=== PATIENT | female | born 1990 | race Caucasian/White ===

== ENCOUNTER 2017-09-12 11:19 | Observation (INO) | payer OTHER ==
[~2017-09-12] VITALS: Ht 167.6 cm; Wt 76.7 kg
[2017-09-12 12:08] VITALS: BP 116/72
[2017-09-12 12:31] LABS: BASOPHILS % (AUTO) 0.4 % (0.0-2.0); EOSINOPHILS % (AUTO) 1.6 % (1.0-6.0); HEMATOCRIT 36.8 % (36-46); HEMOGLOBIN 12.8 g/dL (12.0-16.0); LYMPHOCYTES # (AUTO) 1.6 K/uL (1.0-4.8); LYMPHOCYTES % (AUTO) 16.6 % (22.0-44.0); MEAN CORPUSCULAR HEMOGLOBIN 29.6 pg (26.0-34.0); MEAN CORPUSCULAR HGB CONC 34.6 G/dL (31.0-37.0); MEAN CORPUSCULAR VOLUME 86 fL (80-100); MONOCYTES # (AUTO) 0.5 K/uL (0.1-1.0); MONOCYTES % (AUTO) 5.1 % (2.0-9.0); NEUTROPHILS # (AUTO) 7.1 K/uL (1.8-7.7); NEUTROPHILS % (AUTO) 76.3 % (40.0-70.0); PLATELET COUNT (AUTO) 165 K/uL (150-450); RED CELL DISTRIBUTION WIDTH 13.1 % (11.5-14.5)
[2017-09-12 12:40] LABS: ANION GAP 6 mmol/L (8-16); CALCIUM, TOTAL 8.9 mg/dL (8.8-10.5); CARBON DIOXIDE 26 mmol/L (22-29); CHLORIDE 103 mmol/L (98-107); CREATININE 0.54 mg/dL (0.60-1.30); GLOMERULAR FILTR. RATE CALC > 60 mL/min (>60); GLUCOSE,RANDOM 76 mg/dL (70-110); POTASSIUM 4.4 mmol/L (3.5-5.1); SODIUM SERUM 135 mmol/L (136-145); UREA NITROGEN, BLOOD 10 mg/dL (7-18)
[2017-09-12 12:45] LABS: ALANINE AMINOTRANSFERASE 29 U/L (12-78); ALBUMIN 2.4 g/dL (3.4-5.0); ALKALINE PHOSPHATASE 88 U/L (46-116); ASPARTATE AMINOTRANSFERASE 19 U/L (15-37); BILIRUBIN,TOTAL 0.4 mg/dL (0.1-1.0); TOTAL PROTEIN, SERUM 6.3 g/dL (6.4-8.2)
[2017-09-12 12:55] LABS: URIC ACID 3.6 mg/dL (2.6-7.2)
== END 2017-09-12 13:25 | disposition home or self-care (01) ==
LOC: 4S 11:19
PROVIDERS: ADMIT Obstetrics & Gynecology; ATTEND Obstetrics & Gynecology
DX: O13.3 Gestational [pregnancy-induced] hypertension without significant proteinuria, third trimester (principal); Z3A.37 37 weeks gestation of pregnancy
CPT/HCPCS: 36415; 59025; 80053; 84550; 85025; G0378

== ENCOUNTER 2017-10-05 14:10 | Inpatient (IN) | payer OTHER ==
[~2017-10-05] VITALS: Ht 168 cm; Wt 80.7 kg
[2017-10-05] MEDS ORDERED: RINGERS SOLUTION,LACTATED 1,000 ML IV PRN (14:21)
[2017-10-05] MEDS ORDERED: OXYTOCIN 30 UNITS/LACT RINGERS 500 ML IV ONE (14:21)
[2017-10-05] MEDS ORDERED: METOCLOPRAMIDE HCL 5 MG/ML 2 ML VIAL IVP PRN (14:30)
[2017-10-05] MEDS ORDERED: CITRIC ACID/SODIUM CITRATE 30 ML SOLUTION UDCUP PO PRN (14:30)
[2017-10-05 14:45] LABS: BASOPHILS % (AUTO) 0.7 % (0.0-2.0); HEMATOCRIT 40.3 % (36-46); HEMOGLOBIN 14.2 g/dL (12.0-16.0); LYMPHOCYTES # (AUTO) 1.6 K/uL (1.0-4.8); LYMPHOCYTES % (AUTO) 15.1 % (22.0-44.0); MEAN CORPUSCULAR HEMOGLOBIN 30.3 pg (26.0-34.0); MEAN CORPUSCULAR HGB CONC 35.3 G/dL (31.0-37.0); MEAN CORPUSCULAR VOLUME 86 fL (80-100); MONOCYTES # (AUTO) 0.4 K/uL (0.1-1.0); MONOCYTES % (AUTO) 3.7 % (2.0-9.0); NEUTROPHILS # (AUTO) 8.5 K/uL (1.8-7.7); NEUTROPHILS % (AUTO) 79.5 % (40.0-70.0); PLATELET COUNT (AUTO)-OB 172 K/uL (150-450); RED CELL DISTRIBUTION WIDTH 13.9 % (11.5-14.5)
[2017-10-05] MEDS ORDERED: METHY250 PO (15:31)
[2017-10-05] MEDS ORDERED: PREN1TAB80 PO (15:31)
[2017-10-05] MEDS ORDERED: AMPICILLIN SODIUM 1 GM/NS 50 ML IV SCH (15:45)
[2017-10-05] MEDS ORDERED: AMPICILLIN SODIUM 2 GM/NS 100 ML IV ONE (15:45)
[2017-10-05] MEDS: RINGERS SOLUTION,LACTATED 1,000 ML IV SCH ×2 (15:57→20:01)
[2017-10-05 17:17] VITALS: BP 114/78
[2017-10-05] MEDS: MISOPROSTOL 25 MCG TABLET VG SCH ×2 (17:21→21:28)
[2017-10-06] MEDS: MISOPROSTOL 25 MCG TABLET VG SCH ×4 (01:43→14:05)
[2017-10-06] MEDS: RINGERS SOLUTION,LACTATED 1,000 ML IV SCH ×3 (01:44→20:45)
[2017-10-06] MEDS: OXYGEN THERAPY IH SCH (08:00)
[2017-10-06] MEDS ORDERED: AMPICILLIN SODIUM 2 GM/NS 100 ML IV ONE ×2 (11:15)
[2017-10-06] MEDS ORDERED: AMPICILLIN SODIUM 1 GM/NS 50 ML IV SCH (15:15)
[2017-10-06] MEDS: AMPICILLIN SODIUM 1 GM/NS 50 ML IV SCH ×2 (17:23→20:45)
[2017-10-06] MEDS ORDERED: DINOPROSTONE 10 MG VAGINAL SUPPOSITORY VG ONE (20:30)
[2017-10-06] MEDS: FentaNYL CITRATE-PF 100 MCG/2 ML VIAL IVP PRN ×2 (20:44→22:48)
[2017-10-07] MEDS ORDERED: DINOPROSTONE 10 MG VAGINAL SUPPOSITORY VG ONE (00:45)
[2017-10-07] MEDS ORDERED: LIDOCAINE HCL/PF 2% 5 ML VIAL ONE (00:55)
[2017-10-07] MEDS ORDERED: ROPIVACAINE HCL/PF 0.2% 100 ML ED ONE ×2 (00:55→09:28)
[2017-10-07] MEDS: RINGERS SOLUTION,LACTATED 1,000 ML IV SCH ×3 (01:02→14:50)
[2017-10-07] MEDS: AMPICILLIN SODIUM 1 GM/NS 50 ML IV SCH ×3 (01:03→10:15)
[2017-10-07] MEDS ORDERED: FentaNYL/BUPIV 0.125%/NS/PF 200 ML ED PRN (01:14)
[2017-10-07] MEDS ORDERED: NALBUPHINE HCL 10 MG/ML VIAL IVP PRN (01:15)
[2017-10-07] MEDS ORDERED: DiphenhydrAMINE HCL 50 MG/ML VIAL IVP PRN (01:15)
[2017-10-07] MEDS ORDERED: ONDANSETRON HCL 4 MG/2 ML VIAL IVP PRN (01:15)
[2017-10-07] MEDS ORDERED: LIDOCAINE HCL 2%/EPI 1:200,000/PF 20 ML VIAL ONE (09:28)
[2017-10-07] MEDS ORDERED: OXYTOCIN 30 UNITS/LACT RINGERS 500 ML IV PRN (12:32)
[2017-10-07] MEDS ORDERED: -PHARMACY NOTE- MISC ONE (12:45)
[2017-10-07] MEDS: OXYGEN THERAPY IH SCH (12:51)
[2017-10-07] MEDS ORDERED: OXYTOCIN 20 UNITS/LACT RINGERS 1,000 ML IV ONE (18:10)
[2017-10-07] MEDS ORDERED: OXYTOCIN 20 UNITS/LACT RINGERS 1,000 ML IV SCH (18:29)
[2017-10-07] MEDS ORDERED: LANOLIN 7 GM OINTMENT TP PRN (18:30)
[2017-10-07] MEDS ORDERED: GLYCERIN/WITCH HAZEL LEAF 40 PADS JAR TP PRN (18:30)
[2017-10-07] MEDS ORDERED: MAGNESIUM HYDROXIDE SUSPENSION 30 ML UDCUP PO PRN (18:30)
[2017-10-07] MEDS ORDERED: SENNA/DOCUSATE SODIUM 187-50 MG TABLET PO PRN (18:30)
[2017-10-07] MEDS ORDERED: MEASLES/MUMPS/RUBELLA VACCINE, LIVE 0.5 ML/VIAL SQ ONE (18:30)
[2017-10-07] MEDS ORDERED: ACETAMINOPHEN/CODEINE 300-30 MG TABLET PO PRN (18:30)
[2017-10-07] MEDS ORDERED: BENZOCAINE 20%/MENTHOL 56 GM SPRAY CANISTER TP PRN (18:30)
[2017-10-07] MEDS ORDERED: IBUPROFEN 600 MG TABLET PO PRN (18:30)
[2017-10-08 06:09] LABS: BASOPHILS % (AUTO) 0.3 % (0.0-2.0); EOSINOPHILS % (AUTO) 1.2 % (1.0-6.0); HEMATOCRIT 35.6 % (36-46); HEMOGLOBIN 12.5 g/dL (12.0-16.0); MEAN CORPUSCULAR HEMOGLOBIN 30.3 pg (26.0-34.0); MEAN CORPUSCULAR HGB CONC 34.9 G/dL (31.0-37.0); MEAN CORPUSCULAR VOLUME 87 fL (80-100); MONOCYTES # (AUTO) 0.9 K/uL (0.1-1.0); MONOCYTES % (AUTO) 5.6 % (2.0-9.0); NEUTROPHILS # (AUTO) 13.2 K/uL (1.8-7.7); NEUTROPHILS % (AUTO) 80.9 % (40.0-70.0); PLATELET COUNT (AUTO)-OB 151 K/uL (150-450); RED BLOOD CELL COUNT(AUTO) 4.11 MIL/uL (4.00-5.20); RED CELL DISTRIBUTION WIDTH 13.7 % (11.5-14.5)
== END 2017-10-08 19:15 | disposition home or self-care (01) | DRG 775 ==
LOC: OBSVTOIN 14:10 → 4S 14:10
PROVIDERS: ADMIT Obstetrics & Gynecology; ATTEND Obstetrics & Gynecology
PROC: 10E0XZZ Delivery of Products of Conception, External Approach (ICD-10-PCS; principal; 2017-10-07)
PROC: 0KQM0ZZ Repair Perineum Muscle, Open Approach (ICD-10-PCS; 2017-10-07)
PROC: 0W8NXZZ Division of Female Perineum, External Approach (ICD-10-PCS; 2017-10-07)
PROC: 3E0R3BZ Introduction of Anesthetic Agent into Spinal Canal, Percutaneous Approach (ICD-10-PCS; 2017-10-07)
PROC: 00HU33Z Insertion of Infusion Device into Spinal Canal, Percutaneous Approach (ICD-10-PCS; 2017-10-07)
DX: O77.0 Labor and delivery complicated by meconium in amniotic fluid (principal); O69.81X0 Labor and delivery complicated by cord around neck, without compression, not applicable or unspecified; O70.1 Second degree perineal laceration during delivery; Z3A.40 40 weeks gestation of pregnancy; Z37.0 Single live birth
CPT/HCPCS: 86850; 86900; 86901; J0290; J2590; J2795; J3010; J3490; J7120

== ENCOUNTER 2020-01-12 23:54 | Inpatient (IN) | payer OTHER ==
[~2020-01-12] VITALS: Ht 168 cm; Wt 72.6 kg
[~2020-01-12 23:54] MED LIST: PREN1TAB80 PO
[2020-01-13] MEDS ORDERED: RINGERS SOLUTION,LACTATED 1,000 ML IV PRN (00:27)
[2020-01-13] MEDS ORDERED: OXYTOCIN 30 UNITS/LACT RINGERS 500 ML IV ONE ×2 (00:27→02:36)
[2020-01-13] MEDS ORDERED: RINGERS SOLUTION,LACTATED 1,000 ML IV SCH (00:27)
[2020-01-13] MEDS ORDERED: CITRIC ACID/SODIUM CITRATE 30 ML SOLUTION UDCUP PO PRN (00:30)
[2020-01-13] MEDS ORDERED: FentaNYL CITRATE-PF 100 MCG/2 ML VIAL IVP PRN (00:30)
[2020-01-13] MEDS ORDERED: METOCLOPRAMIDE HCL 5 MG/ML 2 ML VIAL IVP PRN (00:30)
[2020-01-13] MEDS ORDERED: BUPIVACAINE HCL/PF 0.25% 10 ML VIAL ONE (00:56)
[2020-01-13] MEDS ORDERED: ROPIVACAINE HCL/PF 0.2% 100 ML ED ONE (00:56)
[2020-01-13] MEDS ORDERED: ROPIVACAINE HCL/PF 0.2% 100 ML ED PRN (01:15)
[2020-01-13] MEDS ORDERED: ONDANSETRON HCL 4 MG/2 ML VIAL IVP PRN (01:15)
[2020-01-13] MEDS ORDERED: DiphenhydrAMINE HCL 50 MG/ML VIAL IVP PRN (01:15)
[2020-01-13] MEDS ORDERED: NALBUPHINE HCL 10 MG/ML VIAL IVP PRN (01:15)
[2020-01-13 01:32] LABS: BASOPHILS % (AUTO) 0.6 % (0.0-2.0); EOSINOPHILS % (AUTO) 0.7 % (1.0-6.0); LYMPHOCYTES # (AUTO) 2.4 K/uL (1.0-4.8); LYMPHOCYTES % (AUTO) 19.5 % (22.0-44.0); MEAN CORPUSCULAR HEMOGLOBIN 30.3 pg (26.0-34.0); MEAN CORPUSCULAR HGB CONC 35.1 G/dL (31.0-37.0); MEAN CORPUSCULAR VOLUME 86 fL (80-100); MONOCYTES # (AUTO) 0.6 K/uL (0.1-1.0); MONOCYTES % (AUTO) 4.8 % (2.0-9.0); NEUTROPHILS % (AUTO) 74.4 % (40.0-70.0); PLATELET COUNT (AUTO)-OB 135 K/uL (150-450); RED BLOOD CELL COUNT(AUTO) 4.63 MIL/uL (4.00-5.20); RED CELL DISTRIBUTION WIDTH 13.5 % (11.5-14.5)
[2020-01-13] MEDS ORDERED: AMPICILLIN SODIUM 2 GM/NS 100 ML IV ONE ×2 (01:43→02:00)
[2020-01-13] MEDS ORDERED: LANOLIN 7 GM OINTMENT TP PRN (02:45)
[2020-01-13] MEDS ORDERED: LIDOCAINE/PF 1% 30 ML VIAL INJ PRN (02:45)
[2020-01-13] MEDS ORDERED: OxyCODONE HCL/ACETAMINOPHEN 5-325 MG TABLET PO PRN ×2 (02:45)
[2020-01-13] MEDS ORDERED: GLYCERIN/WITCH HAZEL LEAF 40 PADS JAR TP PRN (02:45)
[2020-01-13] MEDS ORDERED: BENZOCAINE 20%/MENTHOL 56 GM SPRAY CANISTER TP PRN (02:45)
[2020-01-13 04:33] VITALS: BP 116/82
[2020-01-13] MEDS ORDERED: LEVO100 PO (05:33)
[2020-01-13] MEDS ORDERED: METHY250 PO (05:34)
[2020-01-13] MEDS ORDERED: AMPICILLIN SODIUM 1 GM/NS 50 ML IV SCH (06:00)
[2020-01-13] MEDS: LEVOTHYROXINE SODIUM 100 MCG TABLET PO SCH (06:27)
[2020-01-13] MEDS ORDERED: OXYGEN THERAPY IH SCH (08:00)
[2020-01-13] MEDS: IBUPROFEN 800 MG TABLET PO PRN (12:41)
[2020-01-13] MEDS: MAGNESIUM HYDROXIDE SUSPENSION 30 ML UDCUP PO PRN (12:42)
[2020-01-14 06:28] LABS: BASOPHILS % (AUTO) 0.7 % (0.0-2.0); EOSINOPHILS % (AUTO) 2.2 % (1.0-6.0); HEMATOCRIT 36.8 % (36-46); HEMOGLOBIN 12.6 g/dL (12.0-16.0); LYMPHOCYTES # (AUTO) 1.8 K/uL (1.0-4.8); MEAN CORPUSCULAR HEMOGLOBIN 30.1 pg (26.0-34.0); MEAN CORPUSCULAR HGB CONC 34.4 G/dL (31.0-37.0); MEAN CORPUSCULAR VOLUME 88 fL (80-100); MONOCYTES # (AUTO) 0.4 K/uL (0.1-1.0); MONOCYTES % (AUTO) 5.1 % (2.0-9.0); NEUTROPHILS # (AUTO) 5.9 K/uL (1.8-7.7); PLATELET COUNT (AUTO)-OB 118 K/uL (150-450); RED CELL DISTRIBUTION WIDTH 13.7 % (11.5-14.5)
[2020-01-14] MEDS: LEVOTHYROXINE SODIUM 100 MCG TABLET PO SCH (06:42)
[2020-01-14] MEDS: MAGNESIUM HYDROXIDE SUSPENSION 30 ML UDCUP PO PRN (08:51)
[2020-01-14] MEDS ORDERED: IBUP-2071 PO (12:14)
[2020-01-14] MEDS: IBUPROFEN 800 MG TABLET PO PRN (13:19)
== END 2020-01-14 14:10 | disposition home or self-care (01) | DRG 807 ==
LOC: OBSVTOIN 23:54 → 4S 23:54
PROVIDERS: ADMIT Obstetrics & Gynecology; ATTEND Obstetrics & Gynecology
PROC: 10907ZC Drainage of Amniotic Fluid, Therapeutic from Products of Conception, Via Natural or Artificial Opening (ICD-10-PCS; principal; 2020-01-13)
PROC: 10E0XZZ Delivery of Products of Conception, External Approach (ICD-10-PCS; 2020-01-13)
PROC: 0KQM0ZZ Repair Perineum Muscle, Open Approach (ICD-10-PCS; 2020-01-13)
PROC: 3E0R3BZ Introduction of Anesthetic Agent into Spinal Canal, Percutaneous Approach (ICD-10-PCS; 2020-01-13)
PROC: 00HU33Z Insertion of Infusion Device into Spinal Canal, Percutaneous Approach (ICD-10-PCS; 2020-01-13)
DX: O70.1 Second degree perineal laceration during delivery (principal); Z37.0 Single live birth; Z3A.39 39 weeks gestation of pregnancy
CPT/HCPCS: 86850; 86900; 86901; 87426; J0290; J2590; J2795; J3490; J7120